=== PATIENT | male | born 1990 | race Caucasian/White ===

== ENCOUNTER 2019-10-08 14:33 | Emergency (ER) | payer OTHER ==
[~2019-10-08] VITALS: Wt 88.2 kg
[2019-10-08 16:03] VITALS: BP 152/93
== END 2019-10-08 16:04 | disposition home or self-care (01) ==
LOC: ED 14:33
DX: S06.0X9A Concussion with loss of consciousness of unspecified duration, initial encounter (principal); S01.112A Laceration without foreign body of left eyelid and periocular area, initial encounter; S01.412A Laceration without foreign body of left cheek and temporomandibular area, initial encounter; W22.8XXA Striking against or struck by other objects, initial encounter; Y92.89 Other specified places as the place of occurrence of the external cause
CPT/HCPCS: J1885

== ENCOUNTER → 2019-10-15 | Outpatient (CLI) | payer OTHER ==
[2019-10-15 09:30] VITALS: BP 143/86
== END ==
LOC: AMSURD 09:38
DX: Z48.02 Encounter for removal of sutures (principal)